=== PATIENT | female | born 1960 | race Caucasian/White ===

== ENCOUNTER → 2017-05-28 | Outpatient (CLI) | payer OTHER ==
[~2017-05-28] MED LIST: B-COCAP2 PO; BACL10TA PO; CHOLTAB3 PO; COEN150C PO; CRAN250T PO; FEXO1TAB46 PO; GABA-113 PO; HYDR-5688 PO; MAGN400T6 PO; MELO15TA3 PO; MISCCAP80; PRLSR20 PO; ROSU5TAB PO
[2017-05-28 13:51] LABS: BASO ABS # 0.05 K/uL (0-0.2); EOS % 2.4 %; EOS ABS # 0.12 K/uL (0-0.5); HEMATOCRIT 41.1 % (37-47); HEMOGLOBIN 14.2 g/dL (12.0-16.0); IG# 0.01 K/uL (0.00-0.02); LYMPH % 16.3 %; LYMPH ABS # 0.81 K/uL (1.2-3.4); MEAN CELL VOLUME 89.9 fL (80-100); MEAN CORPUSCULAR HEMOGLOBIN 31.1 pg (25-34); MEAN CORPUSCULAR HGB CONC 34.5 g/dl (32-36); MEAN PLATELET VOLUME 8.7 fL (7.4-10.4); MONO % 6.8 %; MONO ABS # 0.34 K/uL (0.11-0.59); NEUT % 73.3 %; NEUT ABS # 3.64 K/uL (1.4-6.5); PLATELET COUNT 353 K/uL (130-400); RED CELL DISTRIBUTION WIDTH CV 13.5 % (11.5-14.5); RED CELL DISTRIBUTION WIDTH SD 44.5 fL (36.4-46.3); WHITE BLOOD COUNT 4.97 K/uL (4.8-10.8)
== END | disposition home or self-care (01) ==
LOC: C.LABBC 11:29
PROVIDERS: ATTEND Anesthesiology
DX: M79.1 Myalgia (principal); M25.50 Pain in unspecified joint